=== PATIENT | female | born 1940 | race Caucasian/White ===

== ENCOUNTER → 2019-01-08 12:56 | Outpatient (CLI) | payer MEDICARE, OTHER ==
[2013-05-17 11:59] VITALS: BMI 19.6
[~2019-01-08 12:56] MED LIST: ASPIRIN EC81 MG PO; BENICAR40 MG; LIPITOR40 MG; MOBIC7.5 MG PO; VITAMIN D250000 UNIT; VITAMIN E200 UNI1
== END | disposition home or self-care (01) ==
LOC: D.HCCECHO 12:56
PROVIDERS: ATTEND Internal Medicine Cardiovascular Disease
DX: I34.0 Nonrheumatic mitral (valve) insufficiency (principal)

== ENCOUNTER 2019-09-23 11:30 | Outpatient (CLI) | payer MEDICARE, OTHER ==
[~2019-09-23] VITALS: Ht 160 cm; Wt 52.3 kg
[2019-09-23 11:43] VITALS: BP 140/77; Ht 160 cm; Wt 52.3 kg
== END 2019-09-23 11:56 | disposition home or self-care (01) ==
LOC: D.OPS 11:30
PROVIDERS: ATTEND Family Medicine
DX: M81.0 Age-related osteoporosis without current pathological fracture (principal)